=== PATIENT | male | born 1970 | race African-American/Black ===

== ENCOUNTER → 2016-05-30 | Outpatient (CLI) | payer OTHER | LOC: COL.RAD 12:30 | DX: M48.02 Spinal stenosis, cervical region (principal); M51.27 Other intervertebral disc displacement, lumbosacral region; M22.41 Chondromalacia patellae, right knee; M13.89 Other specified arthritis, multiple sites ==

== ENCOUNTER 2016-09-06 17:00 | Outpatient (RCR) | payer OTHER | END 2016-11-03 | disposition home or self-care (01) | LOC: MKS.ESL.PT | DX: M54.5 Low back pain (principal); G56.00 Carpal tunnel syndrome, unspecified upper limb ==